=== PATIENT | female | born 1975 | race Two or more races ===

== ENCOUNTER 2018-03-10 09:38 | Outpatient (CLI) | payer OTHER | END 2018-03-10 09:50 | disposition home or self-care (01) | LOC: MAMO-SONO 09:38 | DX: Z12.31 Encounter for screening mammogram for malignant neoplasm of breast (principal); N60.19 Diffuse cystic mastopathy of unspecified breast ==

== ENCOUNTER 2018-04-23 08:58 | Outpatient (CLI) | payer OTHER | END 2018-04-23 09:11 | disposition home or self-care (01) | LOC: RAD 08:58 | DX: N64.4 Mastodynia (principal); R05 Cough ==